=== PATIENT | male | born 1980 ===

== ENCOUNTER 2017-10-25 16:05 | Emergency (ER) | payer MEDICAID ==
[2017-10-25 16:05] VITALS: BMI 22.9
[2017-10-25] MEDS ORDERED: cefTRIAXone 250 MG, Water For Injection 20 ML IM STA (17:34)
--- NOTE | 2017-10-25 17:36 | C.PDOC ---
History Of Present Illness 37 year old male, whose PMHx includes extensive psychiatric and substance abuse issues for evaluation of STD after he engaged in unprotected sexual intercourse yesterday. When asked to specify the type of intercourse, patient became agitated and confrontational. Patient is refusing to answer additional questions and has no other complaints at this time. Time Seen by Provider: 10/25/17 16:51 Chief Complaint (Nursing): Male Genitourinary History Per: Patient History/Exam Limitations: no limitations Current Symptoms Are (Timing): Still Present Associated Symptoms: denies: Fever, Chills Additional History Per: Patient Past Medical History Reviewed: Historical Data, Nursing Documentation, Vital Signs - Medical History PMH: Asthma, Bipolar Disorder Denies: CVA, Diabetes, Hepatitis, HIV, HTN, Chronic Kidney Disease, Seizures , Sexually Transmitted Disease Surgical History: Tonsillectomy Family History: States: Unknown Family Hx - Social History Hx Tobacco Use: Yes Hx Alcohol Use: Yes Hx Substance Use: Yes - Immunization History Hx Tetanus Toxoid Vaccination: No Hx Influenza Vaccination: No Hx Pneumococcal Vaccination: No Review Of Systems Constitutional: Negative for: Fever, Chills Physical Exam - Physical Exam Appears: Non-toxic, No Acute Distress, Other (disheveled, hyperkinetic, mumbling and talking to himself, speaking incoherently, questionably hallucinating) Skin: Normal Color, Warm, Dry Head: Atraumatic Eye(s): bilateral: Normal Inspection Oral Mucosa: Moist Neck: Supple Extremity: Normal ROM Neurological/Psych: Oriented x3, Other (bizarre ) ED Course And Treatment - Laboratory Results Lab Interpretation: Abnormal (tox + PCP/THC) Progress Note: GC/Chlamydia and UA ordered and reviewed. Rocephin IM and Zithromax PO administered. Medical Decision Making Medical Decision Making: ? STD exposure (will not answer questions) or decompensated psych vs intox (h/o both) empiric tx for GC/Chlamydia- opt f/u @ [facility]. Unclear if pt stayed for empiric tx tox + THC/PCP which may explain his consistently incoherent and bizarre behavior. pt ambulating through Pediatrics menacing staff and pediatric patients, was removed from the ED by Security. Disposition Doctor Will See Patient In The: Office Counseled Patient/Family Regarding: Studies Performed, Diagnosis - Disposition Referrals: [facility] [Outside] [facility] [Outside] [facility] [Outside] [facility] [Outside] Disposition: HOME/ ROUTINE Disposition Time: 17:36 Condition: GOOD Additional Instructions: seek further evaluation for potential sexually transmitted diseases @ the [facility] You were treated empirically with Rocephin 250 mg Intramuscular and Azithromycin 1000 mg by mouth This is a COMPLETE treatment for Chlamydia and Gonorrhea but NOT for other potential STD's including syphilis, hepatitis, HIV. the [facility] will continue your evaluation for these diseases. you do NOT need to return to the Emergency Department for further treatement. Your Urine sample was sent to evaluate for GC/Chlamydia. Instructions: Chlamydia and Gonorrhea Forms: [employer] (Burmese) - Clinical Impression Clinical Impression: Sexually transmitted disease exposure, PCP (phencyclidine) abuse, Bizarre behavior, Drug abuse, Marijuana abuse - Scribe Statement The provider has reviewed the documentation as recorded by the Scribe (Iqra Vargas) Provider Attestation: All medical record entries made by the Scribe were at my direction and personally dictated by me. I have reviewed the chart and agree that the record accurately reflects my personal performance of the history, physical exam, medical decision making, and the department course for this patient. I have also personally directed, reviewed, and agree with the discharge instructions and disposition.
[2017-10-25] MEDS ORDERED: cefTRIAXone 250 MG, Water For Injection 1 ML IM STA (18:05)
[2017-10-25 18:21] LABS: SQUAMOUS EPITHIAL < 1 /hpf (0-5); URINE BACTERIA RARE (<OCC); URINE BILIRUBIN NEGATIVE (NEGATIVE); URINE BLOOD 1+ (NEGATIVE); URINE CLARITY Clear (Clear); URINE COLOR Yellow (YELLOW); URINE GLUCOSE (UA) NORMAL (Normal); URINE LEUKOCYTE ESTERASE NEG Leu/uL (Negative); URINE PROTEIN NEGATIVE (NEGATIVE); URINE UROBILINOGEN NORMAL mg/dL (0.2-1.0)
[2017-10-25 18:22] LABS: BARBITURATES, UR NEGATIVE (NEGATIVE); BENZODIAZEPINES, UR NEGATIVE (NEGATIVE); OPIATES, UR NEGATIVE (NEGATIVE)
[2017-10-25 18:25] LABS: PHENCYCLIDINE, UR POSITIVE (NEGATIVE)
== END 2017-10-25 18:50 | disposition home or self-care (01) ==
LOC: C.ER 16:05
DX: Z20.2 Contact with and (suspected) exposure to infections with a predominantly sexual mode of transmission (principal); F16.10 Hallucinogen abuse, uncomplicated; F12.10 Cannabis abuse, uncomplicated